=== PATIENT | male | born 1960 | race Caucasian/White ===

== ENCOUNTER → 2017-08-17 09:05 | Outpatient (CLI) | payer BC, SELFPAY ==
[2017-08-17 12:06] LABS: Anion Gap 7 (5-15); BUN 13 mg/dL (7-18); BUN/Creat Ratio 15.2 RATIO (10-20); Calcium,Total 8.2 mg/dL (8.5-10.1); Chloride 104 mmol/L (98-107); Cholesterol 150 mg/dL (200); Creatinine, Serum 0.86 mg/dL (0.70-1.30); EST Glomerular Filtration Rate 98 mL/min (>60); Est Glom Filt Rate - Afr Amer 119 mL/min (>60); Glucose 73 mg/dL (70-110); High Density Lipoprotein 55 mg/dL; PSA,Total - Annual Screen 0.82 ng/mL (0.00-4.00); Potassium 3.9 mmol/L (3.5-5.1); Sodium Level 139 mmol/L (136-145); Triglycerides 78 mg/dL; Very Low Density Lipoprotein 16 mg/dL (5-40)
== END ==
PROVIDERS: Visit Provider Family Medicine
DX: J30.9 Allergic rhinitis, unspecified (principal); Z12.5 Encounter for screening for malignant neoplasm of prostate
CPT/HCPCS: 36415; 80048; 80061; 84153; G0103

== ENCOUNTER → 2017-10-24 07:04 | Outpatient (CLI) | payer BC, SELFPAY ==
--- NOTE | 2017-10-24 07:30 | MRI_ITS ---
MR Brain and IACs WO/W Contrast INDICATION: sudden left hearing loss X 5 WKS COMPARISON: None TECHNIQUE: Multiplanar multisequence MRI examination of the brain and internal auditory canals without and with IV contrast. 10 mL of Gadavist given intravenously. FINDINGS: MRI brain: The ventricular system is normal in size and symmetric. Cortical sulci and basal cisterns are well seen. Varghese-white matter differentiation is normal. There is no evidence of restricted diffusion to suggest acute infarction. Supra and infratentorial brain parenchyma demonstrates normal signal. After contrast administration, there is no abnormal parenchymal or extra-axial enhancement identified. MRI IACs: The internal auditory canals, seventh and eighth nerve complexes are normal and symmetric. Cochlea and semicircular canals are normal and symmetric. The mastoid air cells and middle ear cavities are clear. There is complete opacification of the left lateral aspect of the sphenoid sinus and large polypoid mucosal thickening in the left maxillary sinus. There is mild mucosal thickening in the right maxillary sinus, right lateral aspect of the sphenoid sinus and ethmoid sinuses. The frontal sinuses clear. IMPRESSION: Unremarkable MR appearance of the brain parenchyma and internal auditory canals. Paranasal sinus disease with complete opacification of the left sphenoid sinus. at 0103 Reported and signed by: Marielos Millard MD Electronically Signed: Marielos Millard MD at 0:01 EDT Tel , Service support , MR Brain and IACs WO/W Contrast INDICATION: sudden left hearing loss X 5 WKS COMPARISON: None TECHNIQUE: Multiplanar multisequence MRI examination of the brain and internal auditory canals without and with IV contrast. 10 mL of Gadavist given intravenously. FINDINGS: MRI brain: The ventricular system is normal in size and symmetric. Cortical sulci and basal cisterns are well seen. Varghese-white matter differentiation is normal. There is no evidence of restricted diffusion to suggest acute infarction. Supra and infratentorial brain parenchyma demonstrates normal signal. After contrast administration, there is no abnormal parenchymal or extra-axial enhancement identified. MRI IACs: The internal auditory canals, seventh and eighth nerve complexes are normal and symmetric. Cochlea and semicircular canals are normal and symmetric. The mastoid air cells and middle ear cavities are clear. There is complete opacification of the left lateral aspect of the sphenoid sinus and large polypoid mucosal thickening in the left maxillary sinus. There is mild mucosal thickening in the right maxillary sinus, right lateral aspect of the sphenoid sinus and ethmoid sinuses. The frontal sinuses clear. MRI/Brain W/WO Contrast
== END ==
PROVIDERS: Family Provider Family Medicine; PCP Family Medicine; Visit Provider Otolaryngology
DX: H91.92 Unspecified hearing loss, left ear (principal)
CPT/HCPCS: 70553; A9585

== ENCOUNTER → 2017-11-07 16:14 | Outpatient (CLI) | payer BC, SELFPAY ==
--- NOTE | 2017-11-07 07:11 | CT_ITS ---
STUDY: CT MAXILLOFACIAL SINUSES REASON FOR EXAM: Male, 57 years old. Sinusitis. RADIATION DOSAGE (If Supplied By Facility): CTDIvol = ( 33.06 ) mGy, DLP = ( 813.19 ) mGycm TECHNIQUE: The patient was scanned in a multi detector CT scanner. High resolution axial imaging was performed without the administration of intravenous contrast material. Sagittal and coronal images were reconstructed. Individualized dose optimization techniques were used for this CT. COMPARISON: None. FINDINGS: FRONTAL SINUSES: Normal aeration, without mucosal inflammatory disease. ETHMOIDAL SINUSES: Mild mucosal thickening of the ethmoid sinuses. MAXILLARY SINUSES: Large lobulated soft tissue density in the left maxillary sinus probably representing retention cysts or polyps. Mild mucosal thickening within maxillary sinuses bilaterally. SPHENOIDAL SINUSES: There is complete opacification of the left sphenoid sinus with thickening of the sinus wall and extending into the clivus. There is patency of the bilateral maxillary infundibuli with normal uncinate processes, ethmoid bullae, and hiatus semilunaris. There is mild hypertrophy of the middle nasal turbinates. There is mild hypertrophy of inferior nasal turbinates. There is a left sided nasal septal deviation with a left sided nasal septal spur. There is patency of the bilateral nasal airways. The visualized osseous structures are normal. The visualized bilateral orbital contents are normal. CT/Sinus/Facial Bone IMPRESSION: Sinus disease as described above. Complete opacification of left sphenoid sinus extending into the clivus. Electronically Signed: Franki Jennings MD at 8:58 EDT Tel , Service support ,
== END ==
PROVIDERS: Family Provider Family Medicine; PCP Family Medicine; Visit Provider Otolaryngology
DX: J32.9 Chronic sinusitis, unspecified (principal)
CPT/HCPCS: 70486; J2405

== ENCOUNTER 2017-12-15 10:55 | Day surgery (SDC) | payer BC, SELFPAY ==
--- NOTE | 2017-12-12 08:55 | EKG12_ITS ---
Test Reason : PRE OP Blood Pressure : / mmHG Vent. Rate : 080 BPM Atrial Rate : 080 BPM P-R Int : 148 ms QRS Dur : 132 ms QT Int : 404 ms P-R-T Axes : 034 050 004 degrees QTc Int : 465 ms Normal sinus rhythm Right bundle branch block Abnormal ECG Confirmed by CORKY OVERTON, KEHINDE ([id number]), continuity editor WILL KAISER ([id number]) on 12/16/2017 2:50:02 PM Referred By: Dung Novak Confirmed By:KEHINDE FRIED MD
[2017-12-12 10:19] LABS: Anion Gap 6 (5-15); BUN 14 mg/dL (7-18); BUN/Creat Ratio 14.7 RATIO (10-20); Calcium,Total 8.4 mg/dL (8.5-10.1); Chloride 110 mmol/L (98-107); Creatinine, Serum 0.96 mg/dL (0.70-1.30); EST Glomerular Filtration Rate 87 mL/min (>60); Est Glom Filt Rate - Afr Amer 105 mL/min (>60); Glucose 96 mg/dL (74-106); Sodium Level 140 mmol/L (136-145)
[2017-12-15] VITALS (7 sets, daily range): BP systolic 132–163; BP diastolic 69–96; PULSE 60–79; RESP 16–18; TEMP 35.9–36.4; O2SAT 91–100; BMI 29.1
--- NOTE | 2017-12-15 12:25 | ETH_PTH ---
PATIENT: CRISSY CARRION LOC: [facility] [place] U#:[id number] AGE/SX: 57/M ROOM: RE12/15/[address]: Dr. Barak Novak MD : 1960 BED: DIS: 12/15/2017 SPEC #: [id number] RECD: 12/15/17 15:34 STATUS: JOSH REbIeth #: [id number] MICHELLE: 12/15/17 12:[address]: Barak Novak DEPT: SURGICAL PATHOLOGY RECD BY: Venkat Sinha ENTERED: 12/16/17 09:11 SP TYPE: ETH TISS OTHR DR: Dr. Idris Vargas MD Tissues: A - Ethmoid sinus, NOS B - Ethmoid sinus, NOS Procedures: Decalcification bone/plaque Surgery Specimen Level IV HEADER OPERATION: Functional endoscopic sinus surgery PRE-OP DIAGNOSIS: Allergic rhinitis, deviated nasal septum, chronic sinusitis TISSUE SUBMITTED: A ? Contents of right maxillary and ethmoid sinus, B - Contents of left maxillary and ethmoid sinus MICROSCOPIC DIAGNOSIS A. Contents of right maxillary and ethmoid sinus: Fragments of respiratory mucosa with chronic inflammation and bone. B. Contents of left maxillary and ethmoid sinus: Fragments of respiratory mucosa with chronic inflammation and bone. JUJU:mike 12/25/17 MICROSCOPIC DESCRIPTION Slides are reviewed. GROSS DESCRIPTION A - Received in fixative is one container labeled with the patient's name and designated contents right maxillary and ethmoid sinus. The specimen consists of multiple fragments of hemorrhagic, frothy soft tissue mixed with fragments of bone including turbinates that in aggregate measure 5 x 5 x 2 cm. Wallpaper Inspector tissue is submitted in four cassettes after decalcification. B - Received in fixative is one container labeled with the patient's name and designated contents left maxillary and ethmoid sinus. The specimen consists of multiple fragments of de anda soft tissue mixed with fragments of bone including turbinates that in aggregate measure 5 x 3 x 0.3 cm. The entire specimen is submitted in two cassettes after decalcification. / JUJU:mike 12/16/17 TC:3 CPT: 12968 x2, 81697 x2
[2017-12-15] MEDS: Clindamycin 900 MG/50 ML BAG 75 MG IV (12:53)
[2017-12-15] MEDS: Oxymetazoline 0.05% 1 SPRAY SPRAY.BTL 15 SPRAY ×2 (13:12→13:56)
--- NOTE | 2017-12-15 14:19 | PCM.DC ---
You will use the following diet at home:: No restrictions Discharge Activity: Return to Normal Activity Call your doctor if your incision/area has: Increased Pain/ Swelling Additional Dressing/Incision Instructions:: irrigate nose with saline 5-6 times/day Allergies/Adverse Reactions: Allergies No Known Allergies Allergy (Verified 12/08/17 10:55) Medications to take at Discharge L.acidoph,Paracasei, B.lactis [Probiotic] 1 each PO DAILY 12/08/17 Hydrocodone/Acetaminophen [[place] 5-325 Tablet] 1 ea PO Q6H 5 Days #20 tab 12/15/17 The following prescriptions were given: Hydrocodone/Acetaminophen [[place] 5-325 Tablet] 1 ea PO Q6H 5 Days #20 tab Primary Care Physician: Idris Vargas MD [Primary Care Provider] - Please Follow Up With: Gustavo Novak MD When: 1 week
--- NOTE | 2017-12-15 14:55 | OP.PCM_ITS ---
Problem List (1) Chronic pansinusitis Status: Chronic Report of Operation Date of Procedure: 12/15/17 Pre-Operative Diagnosis: chronic pansinusitis Post-Operative Diagnosis: chronic pansinusitis Surgery/Procedure Performed:: functional endoscopic sinus surgery. 1. maxillary antrostomy with removal of contents, right and left. 2. ethmoidectomy , right and left. 3. sphenoidotomy with removal of contents, right and left. 4. frontal sinus exploration with removal of contents, right and left. 5. CT image guidance Type of Anesthesia:: General Description of Procedure: on the day of the procedure, after appropriate informed consent was obtained, the patient was brought to the operating room and placed in supine position on the operating table. he was placed under general endotracheal anesthesia by the anesthesiologist, the endotracheal tube was secured, the eyes were lubricated. the facial recognition stickers were placed and the equipment was registered. the bilateral nasal cavities were decongested with oxymetazoline soaked pledgets. the superior attachment of the middle turbinates were injected with lidocaine/epinephrine. the left nasal cavity was examined with the zero degree telescope. a maxillary antrostomy was performed with a combination of a rocio elevator and a blakesley. contents were removed. the area was widened with a back-biter. the anterior/inferior portion of the middle turbinate was removed with turbinate scizzors. the ethmoid bulla was entered bluntly with the suction and an ethmoidectomy was performed with a curette and upgoing blakesley. this was taken superiorly to the skull base and laterally to the lamina. a stankewicz maneuver was performed and no defect was noted. the natural sphenoid os was probed and widened. the sphenoid was entered. no pus was encountered. there was spongy-appearing bone surrounding the os, but no masses or mucosal irregularities. the area was reasonably probed with no further pockets or loculations encountered. given the erosion into the clivus and thin borders leading to surrounding structures, the area was not probed further. the right nasal cavity was examined with the zero degree telescope. a maxillary antrostomy was performed with a combination of a rocio elevator and a blakesley. contents were removed. the area was widened with a back-biter. the anterior/inferior portion of the middle turbinate was removed with turbinate scizzors. the ethmoid bulla was entered bluntly with the suction and an ethmoidectomy was performed with a curette and upgoing blakesley. this was taken superiorly to the skull base and laterally to the lamina. a stankewicz maneuver was performed and no defect was noted. the natural sphenoid os was probed and widened. the sphenoid was entered. the area was irrigated and hemostasis was observed. the patient was awoken and transferred to the PACU in stable condition. there were no complications. - Admit VTE Documentation VTE Present on Admission: No VTE Mechan Device Prophylaxis: SCD's VTE Pharm Prophylaxis ordered?: No Reason prophylaxis not ordered:: Treatment Not Indicated
== END 2017-12-15 17:22 | disposition home or self-care (01) ==
LOC: SDC 10:56 → AC 10:57
PROVIDERS: Family Provider Family Medicine; PCP Family Medicine; Visit Provider Otolaryngology
PROC: (CPT 31255; principal; 2017-12-15 11:55)
DX: J32.4 Chronic pansinusitis (principal); J34.2 Deviated nasal septum; J30.1 Allergic rhinitis due to pollen; Z87.891 Personal history of nicotine dependence
CPT/HCPCS: 00160; 31255; 31267; 31276; 31288; 36415; 80048; 88305; 88311; 93005; J7120

== ENCOUNTER 2018-01-06 01:09 | Emergency (ER) | payer BC, SELFPAY ==
[2018-01-06 01:11] VITALS: BP 127/78; PULSE 108; RESP 18; TEMP 36.8; O2SAT 92; BMI 27.9
--- NOTE | 2018-01-06 01:41 | CT_ITS ---
STUDY: CT PARANASAL SINUSES WITH CONTRAST REASON FOR EXAM: Male, 57 years old. Sinus infection. Postop 12/15/2017. Fever. Rash. RADIATION DOSAGE (If Supplied By Facility): CTDIvol = ( 29.38 ) mGy, DLP = ( 525.42 ) mGycm TECHNIQUE: The patient was scanned in a multi-detector CT scanner. High resolution transaxial imaging was performed following the intravenous administration of 100ML ml of Isovue 300 contrast material. Sagittal and coronal images were reconstructed. Individualized dose optimization techniques were used for this CT. COMPARISON: CT scan 11/07/2017. FINDINGS: There are postsurgical changes which include: Partial resection of the middle turbinates bilaterally. Partial surgical resection of the ethmoid sinuses bilaterally. Partial resection of the medial sarmiento of the maxillary sinuses bilaterally. Excision of osteomeatal unit structures bilaterally, Including resection of uncinate processes, ethmoid bullae, and hiatus semilunaris. FRONTAL SINUSES: Mild periosteal thickening bilaterally. ETHMOIDAL SINUSES: Partially resected. There is mucoperiosteal thickening and/or debris in residual ethmoid air cells. MAXILLARY SINUSES: Mucoperiosteal thickening bilaterally. Air-fluid level in the right maxillary sinus. SPHENOIDAL SINUSES: Complete opacification of the left sphenoid sinus with sinus wall sclerosis and thickening, consistent with chronic disease. Moderate to severe mucoperiosteal thickening of the right sphenoid sinus, also consistent with chronic disease. INFERIOR TURBINATES: Normal bilateral inferior turbinates. NASAL SEPTUM: There is leftward deviation and spurring of the nasal septum. Normal anterior cranial fossa, edison sosa and cribriform plate. Normal bilateral orbital contents. Normal nasopharynx without adenoidal pad hypertrophy, or a posterior nasopharyngeal retention cyst. There is no demonstrated enhancing soft tissue or osseous abnormality. CT/Sinus/Facial Bone WITH Contras IMPRESSION: Postoperative changes, as above. Chronic pansinusitis. There is overlying acute right maxillary sinusitis. Electronically Signed: Kade Coffman MD at 3:02 EDT , Service support ,
[2018-01-06] MEDS: 0.9% Normal Saline 1,000 ML 1000 ML IV (02:18)
[2018-01-06] MEDS: Ketorolac 15 MG/ML Vial IV (02:18)
[2018-01-06 02:25] LABS: Absolute Lymphocyte Count 0.63 X10^3/ul (0.83-4.51); Absolute Neutrophil Count 9.8 X10^3/uL (2.0-7.7); Basophil# 0.05 X10^3/uL; Basophil% 0.4 % (0-1); Eosinophil# 0.35 X10^3/uL; Hematocrit 36.5 % (40-54); Hemoglobin 13.2 g/dl (13.0-16.5); Lymphocyte # 0.63 X10^3/ul (4.0); Lymphocyte % 5.4 % (19-41); Mean Corp Hgb Conc 36.2 g/gl (32-36); Mean Corpuscular Hgb 30.7 pg (27.0-32.0); Mean Corpuscular Volume 84.9 fL (80-94); Mean Platelet Vol. 10.4 fl (6.2-12.0); Monocyte# 0.61 X10^3/uL; Monocyte% 5.3 % (0-10); Neutrophil # 9.82 X10^3/uL (2.7-7.7); Neutrophil % 84.8 % (47-70); Platelet Count 206 K/mm3 (150-450); RBC Distribution Width CV 11.8 % (11.6-14.6); RBC Distribution Width SD 35.9 fl (35.1-43.9); White Blood Count 11.6 K/mm3 (4.4-11.0)
[2018-01-06 02:27] LABS: Differential Indicated SCAN CRITERIA MET; POSITIVE COUNT NO; POSITIVE DIFFERENTIAL NO; POSITIVE MORPHOLOGY YES
[2018-01-06 02:42] LABS: Anion Gap 10 (5-15); BUN 15 mg/dL (7-18); BUN/Creat Ratio 12.4 RATIO (10-20); Calcium,Total 7.8 mg/dL (8.5-10.1); Chloride 95 mmol/L (98-107); Creatinine, Serum 1.21 mg/dL (0.70-1.30); EST Glomerular Filtration Rate 66 mL/min (>60); Est Glom Filt Rate - Afr Amer 80 mL/min (>60); Estimated Creatinine Clearance 77.04 ml/min; Glucose 118 mg/dL (74-106); Potassium 2.7 mmol/L (3.5-5.1); Sodium Level 131 mmol/L (136-145)
--- NOTE | 2018-01-06 02:43 | ED.RN ---
Dr Tello notified of K of 2.7
--- NOTE | 2018-01-06 02:44 | EKG12_ITS ---
Test Reason : Blood Pressure : / mmHG Vent. Rate : 096 BPM Atrial Rate : 096 BPM P-R Int : 156 ms QRS Dur : 148 ms QT Int : 414 ms P-R-T Axes : 029 019 -10 degrees QTc Int : 523 ms Normal sinus rhythm Right bundle branch block Abnormal ECG Confirmed by MARY OVERTON, RICHI ([id number]), industrial editor WILL KAISER ([id number]) on 01/07/2018 9:07:30 AM Referred By: FARA Confirmed By:RICHI HERNANDEZ MD
--- NOTE | 2018-01-06 04:02 | ED.VISSUMM ---
- ER Visit Summary Date of Service: 01/06/18 Chief Complaint: Fever and rash History of Present Illness: The patient is a 57 M presenting for evaluation secondary to fever and rash. Patient has a recent history of having sinus surgery performed by Dr. Casillas on 15 December. Patient states that over the course of the last 4 days he has developed a fever. It has been as high as 102.6. Patient states that it has been associated with occasional nausea and diarrhea. Patient reports that he has been having chronic sinus symptoms ever since his sinus surgery, denies any sort of new headaches or new drainage from his nose. Patient saw his primary care physician today in the morning and was told that it was a viral infection and that he was dehydrated patient was started on Omnicef. Patient reports that he has had approximately 4 doses of Omnicef and this evening started to break out in a significant rash on his chest and legs. He denies any skin sloughing. Denies any prior similar symptoms. Denies any medication allergies in the past. Denies any numbness or weakness or visual changes. Review of systems otherwise negative. Physical Examination: Vital signs notable for heart rate of 108. Well-nourished male no acute distress. Head normocephalic, atraumatic. Patient speaks with an extremely nasal sounding voice but denies any focal sinus tenderness to percussion. There is a significant amount of purulent drainage in the patient's throat posteriorly, but there is no evidence of posterior fullness exudate asymmetry palatal petechia or any other abnormal findings of the pharynx. Neck was supple. Heart was minimally tachycardic and regular. Lung sounds clear. Abdomen was soft and nontender. Extremities were nonedematous. Skin exam shows evidence of diffuse macular rash across patient's chest abdomen and legs that is blanching and is associated with transient dermatographia. There is no evidence of Nikolsky sign or skin sloughing. No evidence of petechia. Test Results: CBC demonstrates a leukocytosis of 11, chemistry panel shows profound hypokalemia 2.7 mild hyponatremia 131 mild hypochloremia 95 normal anion gap and mild decrease of calcium at 7.8. CT of the sinuses with contrast shows pansinusitis with acute maxillary sinusitis and no evidence of extension or abscess Emergency Department Course and Treatment: Patient presented for evaluation secondary to a fever and rash. Patient's rash at this point seems consistent with a drug rash, and does not seem consistent with Mims-Ariel syndrome or toxic epidermal necrolysis. I believe that this simply can be treated by ceasing the patient's treatment with Omnicef. Patient was worked up due to his fever and his recent surgery. CT demonstrated acute sinusitis with no abscess and lab work ended up showing the patient have a leukocytosis and profound hypokalemia. Patient was given oral as well as IV replacement of his potassium. An EKG demonstrated no signs of arrhythmia at baseline right bundle branch block that was unchanged from a prior EKG. At this point I believe the patient likely has infection from sinusitis, and hypokalemia due to decreased p.o. intake. I do not believe that he requires inpatient management at this time. Patient will be changed to Augmentin for treatment of his sinusitis, will be prescribed a course of this, will be given a course of potassium replacement orally as well as antinausea medications. Patient was recommended that given his new sinusitis he should follow back up with ear nose and throat. He voiced understanding, he understands signs and symptoms for which to return, and the patient was discharged in stable condition. Disposition: Discharge Impression: 1. Acute maxillary sinusitis with pansinusitis 2. Recent sinus surgery 3. Hypokalemia 4. Drug rash This note was generated with [employer] dictation software. It may contain incorrect words, spelling, and punctuation that were not noted in review of the chart prior to signing ED Disposition - Plan for ED Patient: Disposition: Home or Assisted Living Chief Complaint: General Illness Diagnosis: Sinusitis, Hypokalemia, Drug rash Instructions: ED Sinusitis Abx Tx, ED Drug React Adverse Other, ED Potassium Deficiency Prescriptions: Ondansetron [Zofran Odt] 4 mg PO Q8H PRN PRN #10 tab PRN Reason: Nausea Amox/Clavulanate Tablet [Augmentin Tablet] 875 mg PO Q12H #28 tab Potassium Chloride 20 meq PO BID #20 tab.er.prt Referrals: Idris Vargas MD [Primary Care Provider] - 5-7 Days (For a repeat potassium) Gustavo Novak MD [STAFF PHYSICIAN] - 1-2 Weeks (For repeat evaluation due to your sinusitis) Additional Instructions: Stop your cefdinir
[2018-01-06 04:44] VITALS: BP 111/70; PULSE 100; RESP 21; TEMP 36.8; O2SAT 93
[2018-01-06] MEDS: Amox/Clavulanate 875 MG Tablet PO (05:07)
[2018-01-06 05:08] VITALS: BP 113/64; PULSE 98; RESP 17; O2SAT 94
== END 2018-01-06 05:13 | disposition home or self-care (01) ==
PROVIDERS: Emergency Provider Emergency Medicine; Family Provider Family Medicine; PCP Family Medicine
DX: J01.00 Acute maxillary sinusitis, unspecified (principal); J01.40 Acute pansinusitis, unspecified; E87.6 Hypokalemia; I45.10 Unspecified right bundle-branch block; R19.7 Diarrhea, unspecified; R11.0 Nausea; L27.0 Generalized skin eruption due to drugs and medicaments taken internally
CPT/HCPCS: 70487; 80048; 85025; 93005; 99285; J7030; Q9967; A4216

== ENCOUNTER → 2018-01-11 10:14 | Outpatient (CLI) | payer BC, SELFPAY ==
[2018-01-11 12:16] LABS: Anion Gap 7 (5-15); Chloride 103 mmol/L (98-107); Potassium 3.6 mmol/L (3.5-5.1); Sodium Level 140 mmol/L (136-145)
== END ==
PROVIDERS: Family Provider Family Medicine; PCP Family Medicine; Visit Provider Family Medicine
DX: E87.6 Hypokalemia (principal)
CPT/HCPCS: 36415; 80051

== ENCOUNTER → 2018-01-15 16:03 | Outpatient (CLI) | payer BC, SELFPAY | PROVIDERS: Family Provider Family Medicine; PCP Family Medicine; Visit Provider Otolaryngology | DX: J32.9 Chronic sinusitis, unspecified (principal) | CPT/HCPCS: 87070; 87077; 87186; 87205 ==

== ENCOUNTER → 2018-04-12 15:54 | Outpatient (CLI) | payer BC, SELFPAY ==
--- NOTE | 2018-04-12 11:30 | COLBX_PTH ---
PATIENT: CRISSY CARRION LOC: [facility] U#:[id number] AGE/SX: 64/M ROOM: RE04/12/[address]: Dr. Abdullahi Melgar MD : 1960 BED: DIS: SPEC #: [id number] RECD: 04/12/18 15:18 STATUS: JOSH [place] #: [id number] MICHELLE: 04/12/18 11:[address]: Abdullahi Melgar DEPT: SURGICAL PATHOLOGY RECD BY: Vaughn Martin ENTERED: 04/13/18 09:50 SP TYPE: COLON BX OTHR DR: Dr. Idris Vargas MD [facility] Tissues: A - Descending colon B - Sigmoid colon biopsy Procedures: Surgery Specimen Level IV HEADER OPERATION: Colonoscopy with polypectomy PRE-OP DIAGNOSIS: Screening / polyp TISSUE SUBMITTED: A - Descending colon polyp, rule out adenoma, B - Sigmoid polyp 20 cm, rule out adenoma MICROSCOPIC DIAGNOSIS A. Descending colon polyp, polypectomy: Fragments of tubular adenoma. B. Sigmoid polyp at 20 cm, polypectomy: Tubular adenoma. JUJU:mike 04/14/18 MICROSCOPIC DESCRIPTION Slides are reviewed. GROSS DESCRIPTION A - Received in fixative is one container labeled with the patient's name and designated descending. The specimen consists of two irregular fragments of light de anda soft tissue each measuring 4 x 3 x 0.3 cm. The specimen is totally submitted in one cassette. B - Received in fixative is one container labeled with the patient's name and designated sigmoid 20 cm. The specimen consists of a pink-red polyp measuring 1.5 x 1 x 1 cm. The apparent base is inked. The specimen is serially sectioned and submitted entirely in one cassette. / JUJU:mike 04/13/18 TC:1 CPT: 39069 x2
== END ==
PROVIDERS: Family Provider Family Medicine; PCP Family Medicine; Visit Provider Internal Medicine Gastroenterology
DX: Z12.11 Encounter for screening for malignant neoplasm of colon (principal); K63.5 Polyp of colon
CPT/HCPCS: 88305

== ENCOUNTER → 2019-09-30 15:21 | Outpatient (CLI) | payer BC, SELFPAY | PROVIDERS: PCP Family Medicine; Visit Provider Family Medicine | DX: Z80.42 Family history of malignant neoplasm of prostate (principal) | CPT/HCPCS: 36415; 84153; G0103 ==

== ENCOUNTER → 2021-04-19 15:11 | Outpatient (CLI) | payer OTHER, SELFPAY | PROVIDERS: PCP Family Medicine; Referring Provider Family Medicine; Visit Provider Family Medicine | DX: R31.9 Hematuria, unspecified (principal) | CPT/HCPCS: 87086 ==

== ENCOUNTER → 2022-09-18 | Outpatient (CLI) | payer OTHER, SELFPAY ==
[2022-09-18 12:21] LABS: Absolute Lymphocyte Count 1.69 X10^3/uL (0.83-4.51); Absolute Neutrophil Count 3.2 X10^3/uL (2.0-7.7); Basophil# 0.03 X10^3/uL; Basophil% 0.6 % (0-1); Eosinophil# 0.13 X10^3/uL; Eosinophils% 2.4 % (0-5); Hematocrit 44.3 % (40-54); Hemoglobin 15.2 g/dL (13.0-16.5); Lymphocyte # 1.69 X10^3/ul (0.83-4.51); Lymphocyte % 31.3 % (19-41); Mean Corp Hgb Conc 34.3 g/dL (32-36); Mean Corpuscular Hgb 30.5 pg (27.0-32.0); Mean Platelet Vol. 10.8 fl (6.2-12.0); Monocyte# 0.31 X10^3/uL; Monocyte% 5.7 % (0-10); NRBC Flagged by Analyzer 0 % (0-5); Neutrophil # 3.23 X10^3/uL (2.7-7.7); Neutrophil % 59.8 % (47-70); Platelet Count 260 K/mm3 (150-450); RBC Distribution Width CV 12.5 % (11.6-14.6); RBC Distribution Width SD 40.9 fl (35.1-43.9); Red Blood Count 4.98 M/mm3 (4.6-6.2); White Blood Count 5.4 K/mm3 (4.4-11.0)
[2022-09-18 12:26] LABS: Color, Urine Yellow (Yellow); Glucose, Dipstick Normal (Normal); Ketone-Dipstick Negative (Negative); Leukocyte Esterase-Dipstick Negative /ul (Negative); Nitrite-Dipstick Negative (Negative); Occult Blood-Urine Negative /ul (Negative); Protein-Dipstick Negative (Negative); Urine Bilirubin Dipstick Negative (Negative); Urine Clarity Clear (Clear); Urine Urobilinogen Normal (Normal); Urine pH 6.5 (5.0 - 8.0)
[2022-09-18 12:47] LABS: AST(SGOT) 18 U/L (15-37); Alanine Aminotransfer ALT/SGPT 42 U/L (16-61); Albumin, Serum 3.5 g/dL (3.2-5.0); Alkaline Phosphatase 84 U/L (45-117); Anion Gap 6 (5-15); BUN 15 mg/dL (7-18); BUN/Creat Ratio 15.6 RATIO (10-20); Calcium,Total 8.8 mg/dL (8.5-10.1); Chloride 103 mmol/L (98-107); Cholesterol 160 mg/dL (200); Creatinine, Serum 0.96 mg/dL (0.70-1.30); EST Glomerular Filtration Rate 84 mL/min (>60); Est Glom Filt Rate - Afr Amer 102 mL/min (>60); Globulin 3.6 g/dL (2.2-4.2); Glucose 86 mg/dL (74-106); High Density Lipoprotein 55 mg/dL; PSA,Total - Annual Screen 1.14 ng/mL (0.00-4.00); Potassium 4.4 mmol/L (3.5-5.1); Protein, Total 7.1 g/dL (6.4-8.2); Sodium Level 138 mmol/L (136-145); Triglycerides 75 mg/dL; Very Low Density Lipoprotein 15 mg/dL (5-40)
== END | disposition home or self-care (01) ==
PROVIDERS: PCP Family Medicine; Visit Provider Family Medicine
DX: Z00.00 Encounter for general adult medical examination without abnormal findings (principal); R31.9 Hematuria, unspecified; Z80.42 Family history of malignant neoplasm of prostate
CPT/HCPCS: 36415; 80053; 80061; 81002; 84153; 85025; G0103

== ENCOUNTER → 2023-09-18 | Outpatient (CLI) | payer OTHER, SELFPAY ==
--- OUTSIDE RECORDS SUMMARY | 2023-09-18 10:48 | XMS RPT_ITS | CCD ---
Author Name Unknown Address [facility] [id number] [place] [address] Organization [facility] Care Team Providers Care Wheat Grower Name Role Phone CORRIGALL, JAMES Attending Unavailable CORRIGALL, JAMES Primary Care Unavailable CORRIGALL, JAMES Admitting Unavailable CORRIGALL, JAMES Admitting Unavailable CORRIGALL, JAMES Attending Unavailable CORRIGALL, JAMES Primary Care Unavailable Problems Problem Classification Problem Date Documented Date Episodic/Chronic Spondylosis; intervertebral disc disorders; other back problems (3 sources) Other intervertebral disc degeneration, lumbar region; Translations: [Other intervertebral disc degeneration, lumbar region] Onset: 04-17-2023 Chronic Encounters Encounter Date Encounter Type Care Provider Facility Start: 06-19-2023 End: 06-23-2023 ambulatory [facility] Start: 04-17-2023 End: 06-18-2023 [facility] Payers Date Payer Category Payer Unknown [id number] 1960 Unknown [id number] Unknown [id number] Summary Purpose Family History No Family History Records Found Advance Directives No Advanced Directives Records Found Additional Source Comments (unrecognized sect ion and content) No Status Records Found INFORMATION SOURCE (unrecogn ized section and content) FOR RECORDS PERTAINING TO PATIENTS WHO ARE OR HAVE BEEN ENROLLED IN A CHEMICAL DEPENDENCY/SUBSTANCEABUSE PROGRAM, SOME INFORMATION MAY BE OMITTED. This clinical summary was aggregated from multiple sources. Caution should be exercised in using it in the provision of clinical care. This summary normalizes information from multiple sources, and as a consequence, information in this document may materially change the coding, format and clinical context of patient data. In addition, data may be omitted in some cases. CLINICAL DECISIONS SHOULD BE BASED ON THE PRIMARY CLINICAL RECORDS. [email or web address] provides no warranty or guarantee of the accuracy or completeness of information in this document.
[2023-09-18 12:04] LABS: Absolute Lymphocyte Count 1.89 X10^3/uL (0.83-4.51); Absolute Neutrophil Count 3.3 X10^3/uL (2.0-7.7); Basophil# 0.02 X10^3/uL; Basophil% 0.4 % (0-1); Eosinophils% 1.8 % (0-5); Hematocrit 43.1 % (40-54); Hemoglobin 14.4 g/dL (13.0-16.5); Lymphocyte # 1.89 X10^3/ul (0.83-4.51); Lymphocyte % 33.6 % (19-41); Mean Corp Hgb Conc 33.4 g/dL (32-36); Mean Corpuscular Hgb 29.4 pg (27.0-32.0); Mean Corpuscular Volume 88.1 fL (80-94); Mean Platelet Vol. 10.9 fl (6.2-12.0); Monocyte# 0.33 X10^3/uL; Monocyte% 5.9 % (0-10); NRBC Flagged by Analyzer 0 % (0-5); Neutrophil # 3.26 X10^3/uL (2.7-7.7); Neutrophil % 57.9 % (47-70); Platelet Count 253 K/mm3 (150-450); RBC Distribution Width CV 12.4 % (11.6-14.6); RBC Distribution Width SD 40.3 fl (35.1-43.9); Red Blood Count 4.89 M/mm3 (4.6-6.2); White Blood Count 5.6 K/mm3 (4.4-11.0)
[2023-09-18 12:34] LABS: ALB/GLOB Ratio 0.9 RATIO (0.9-2.4); AST(SGOT) 15 U/L (15-37); Alanine Aminotransfer ALT/SGPT 30 U/L (16-61); Albumin, Serum 3.3 g/dL (3.2-5.0); Alkaline Phosphatase 85 U/L (45-117); Anion Gap 4 (5-15); BUN 13 mg/dL (7-18); Calcium,Total 8.6 mg/dL (8.5-10.1); Chloride 108 mmol/L (98-107); Creatinine, Serum 0.93 mg/dL (0.70-1.30); EST Glomerular Filtration Rate 88 mL/min (>60); Est Glom Filt Rate - Afr Amer 106 mL/min (>60); Globulin 3.5 g/dL (2.2-4.2); Glucose 87 mg/dL (74-106); PSA,Total - Annual Screen 1.11 ng/mL (0.00-4.00); Protein, Total 6.8 g/dL (6.4-8.2); Sodium Level 139 mmol/L (136-145)
== END | disposition home or self-care (01) ==
LOC: BFHLAB 10:29
PROVIDERS: PCP Family Medicine; Visit Provider Family Medicine
DX: Z00.00 Encounter for general adult medical examination without abnormal findings (principal); Z80.42 Family history of malignant neoplasm of prostate
CPT/HCPCS: 36415; 80053; 84153; 85025; G0103

== ENCOUNTER → 2024-10-03 | Outpatient (CLI) | payer OTHER, SELFPAY ==
[2024-10-03 12:52] LABS: Absolute Lymphocyte Count 1.35 X10^3/uL (0.83-4.51); Absolute Neutrophil Count 3.6 X10^3/uL (2.0-7.7); Basophil# 0.04 X10^3/uL; Basophil% 0.7 % (0-1); Eosinophil# 0.27 X10^3/uL; Eosinophils% 4.9 % (0-5); Hematocrit 45.1 % (40-54); Lymphocyte # 1.35 X10^3/ul (0.83-4.51); Lymphocyte % 24.4 % (19-41); Mean Corp Hgb Conc 33.3 g/dL (32-36); Mean Corpuscular Hgb 29.9 pg (27.0-32.0); Mean Corpuscular Volume 89.8 fL (80-94); Mean Platelet Vol. 10.9 fl (6.2-12.0); Monocyte% 5.4 % (0-10); NRBC Flagged by Analyzer 0 % (0-5); Neutrophil # 3.55 X10^3/uL (2.7-7.7); Neutrophil % 64.2 % (47-70); Platelet Count 266 K/mm3 (150-450); RBC Distribution Width CV 12.9 % (11.6-14.6); RBC Distribution Width SD 42.3 fl (35.1-43.9); Red Blood Count 5.02 M/mm3 (4.6-6.2); White Blood Count 5.5 K/mm3 (4.4-11.0)
[2024-10-03 14:30] LABS: ALB/GLOB Ratio 1.2 RATIO (0.9-2.4); AST(SGOT) 19 U/L (<=37); Alanine Aminotransfer ALT/SGPT 20 U/L (<=46); Albumin, Serum 4.1 g/dL (3.4-4.8); Alkaline Phosphatase 115 U/L (40-129); Anion Gap 9 (5-15); BUN 11 mg/dL (4-19); BUN/Creat Ratio 10.6 RATIO (10-20); Calcium,Total 9.3 mg/dL (7.6-11.0); Carbon Dioxide 25.8 mmol/L (21.0-32.0); Chloride 103 mmol/L (98-108); EST Glomerular Filtration Rate 85 (>60); Globulin 3.4 g/dL (2.2-4.2); Glucose 90 mg/dL (70-99); PSA,Total - Annual Screen 1.07 ng/mL (0.02-4.00); Potassium 4.8 mmol/L (3.3-5.1); Protein, Total 7.5 g/dL (5.9-8.4); Sodium Level 138 mmol/L (133-145); Total Bilirubin 0.55 mg/dL (0.00-1.30)
== END | disposition home or self-care (01) ==
LOC: BFHLAB 09:25
PROVIDERS: PCP Family Medicine; Visit Provider Family Medicine
DX: Z00.00 Encounter for general adult medical examination without abnormal findings (principal); Z80.42 Family history of malignant neoplasm of prostate
CPT/HCPCS: 36415; 80053; 84153; 85025; G0103